=== PATIENT | male | born 1940 | race Two or more races ===

== ENCOUNTER 2021-12-29 10:00 | Inpatient (IN) | payer OTHER, MEDICAID ==
[~2021-12-29] VITALS: Ht 160 cm; Wt 77.4 kg
[2021-12-29 11:24] LABS: Basophils # (auto) 0 10 ^3/uL (0-0.2); Eosinophils # (auto) 0.2 10 ^3/uL (0-0.8); Hemoglobin 8.3 g/dL (13.5-17.5); Lymphocytes # (auto) 1.3 10 ^3/uL (0.4-5.4); Monocytes # (auto) 0.5 10 ^3/uL (0-1.3); Neutrophils # (auto) 2.7 10 ^3/uL (1.6-8.6)
[2021-12-29 11:25] LABS: Basophils % (auto) 0.4 % (0.0-2.0); Lymphocytes % (auto) 26.9 % (10.0-50.0); Mean Corpuscular Hemoglobin 33.4 pg (28.0-32.0); Mean Corpuscular Hgb Conc. 33.1 g/dL (32.0-36.0); Mean Corpuscular Volume 101.1 fL (80.0-100.0); Monocytes % (auto) 10.5 % (0.0-12.0); Neutrophils % (auto) 58.2 % (37.0-80.0); Nucleated Red Blood Cells % 0.1 %; Red Blood Cells 2.47 10^6/uL (4.5-5.90); Red Cell Distribution Width 14.5 % (11.8-14.3); White Blood Cell 4.7 10^3/uL (4.4-10.8)
[2021-12-29 11:37] LABS: Albumin 3.3 g/dL (3.4-5.0); Calcium 8.4 mg/dL (8.5-10.1)
[2021-12-29 11:42] LABS: BUN/Creatinine Ratio 23.3; Total Protein 6.7 g/dL (6.4-8.2)
[2021-12-29] MEDS ORDERED: DEXTROSE (50%) 50ML SYRG IV ONE (13:00)
[2021-12-29] MEDS ORDERED: SODIUM ZIRCONIUM CYCL 10 GM PAK PO ONE (13:00)
[2021-12-29] MEDS ORDERED: ALBUTEROL SULF 2.5 MG/0.5ML(0.5%) NEB SOLN NEB ONE (13:00)
[2021-12-29] MEDS ORDERED: CALCIUM GLUC 1,000mg/50ml-NS 50 ML IV ONE (13:00)
[2021-12-29] MEDS ORDERED: FUROSEMIDE 20 MG/2 ML VIAL IV ONE (13:00)
[2021-12-29] MEDS ORDERED: InsuLIN REG 1unit/0.01ml Soln (100units/ml) IV ONE (13:00)
[2021-12-29] MEDS ORDERED: SODIUM BICARBONATE 8.4% INJ 50ML SYRINGE IV ONE (13:00)
[2021-12-29 13:08] LABS: Urine Bacteria NONE SEEN /hpf (None Seen); Urine Blood Negative /uL (Negative); Urine Hyaline Cast FEW /lpf (0 - 2); Urine Specific Gravity 1.016 (1.001-1.035); Urine WBC 1 /hpf (0 - 3)
[2021-12-29] MEDS ORDERED: IOHEXOL 350 MG/ML 100ML IJ ONE (14:40)
[2021-12-29] MEDS ORDERED: SODIUM CHLORIDE 0.9% 1,000 ML IV ONE ×2 (14:45→16:30)
[2021-12-29] MEDS ORDERED: NOREPINEPHRINE 8 MG/250ML KIT 250 ML IV SCH (14:45)
[2021-12-29] MEDS ORDERED: ACETYLCYSTEINE ORAL for CIN 20%(200MG/ML) 4ML PO ONE (15:00)
[2021-12-29] MEDS ORDERED: NITROGLYCERIN 0.4 MG SL TAB SL PRN (16:15)
[2021-12-29] MEDS ORDERED: PANTOPRAZOLE 40 MG/10 ML VIAL INJ IV ONE (16:15)
[2021-12-29] MEDS ORDERED: MORPHINE SULFATE INJ 2 MG/ml SYRG IV PRN (16:15)
[2021-12-29 18:39] LABS: Basophils # (auto) 0 10 ^3/uL (0-0.2); Basophils % (auto) 0.2 % (0.0-2.0); Eosinophils # (auto) 0 10 ^3/uL (0-0.8); Eosinophils % (auto) 0.4 % (0.0-7.0); Hematocrit 27.1 % (41.0-53.0); Hemoglobin 8.9 g/dL (13.5-17.5); Lymphocytes # (auto) 0.8 10 ^3/uL (0.4-5.4); Lymphocytes % (auto) 8.7 % (10.0-50.0); Mean Corpuscular Hemoglobin 33.5 pg (28.0-32.0); Mean Corpuscular Hgb Conc. 32.8 g/dL (32.0-36.0); Mean Corpuscular Volume 102.1 fL (80.0-100.0); Monocytes # (auto) 0.6 10 ^3/uL (0-1.3); Neutrophils # (auto) 7.3 10 ^3/uL (1.6-8.6); Neutrophils % (auto) 83.7 % (37.0-80.0); Red Blood Cells 2.66 10^6/uL (4.5-5.90); Red Cell Distribution Width 14.8 % (11.8-14.3); White Blood Cell 8.7 10^3/uL (4.4-10.8)
[2021-12-29 19:00] LABS: BUN/Creatinine Ratio 20.6; Calcium 8.6 mg/dL (8.5-10.1); Potassium 4.7 mmol/L (3.5-5.1)
[2021-12-29 19:01] LABS: % Iron Saturation 28.6 % (20-55)
[2021-12-29 19:19] VITALS: BP 113/43
[2021-12-29] MEDS ORDERED: ATOR20TA50 PO (19:36)
[2021-12-29] MEDS ORDERED: TAMS0.4C36 PO (19:36)
[2021-12-29] MEDS ORDERED: LISI40TA11 PO (19:36)
[2021-12-29 19:38] LABS: Ferritin 362.5 ng/mL (10-322)
[2021-12-29 19:39] LABS: Folate (Folic Acid) 10.18 ng/mL (5.38-24)
[2021-12-29 19:45] LABS: Protein, Urine 20.8 mg/dL (0.0-11.9)
[2021-12-29 20:24] VITALS: BP 109/31
[2021-12-29] MEDS: PANTOPRAZOLE 40 MG/10 ML VIAL INJ IV SCH (21:55)
[2021-12-29 22:00] VITALS: BP 124/55
[2021-12-30] VITALS (9 sets, daily range): BP systolic 116–143; BP diastolic 46–59
[2021-12-30 02:02] LABS: Basophils # (auto) 0 10 ^3/uL (0-0.2); Basophils % (auto) 0.3 % (0.0-2.0); Eosinophils # (auto) 0.1 10 ^3/uL (0-0.8); Eosinophils % (auto) 1.3 % (0.0-7.0); Hematocrit 21.9 % (41.0-53.0); Hemoglobin 7.5 g/dL (13.5-17.5); Lymphocytes # (auto) 1.1 10 ^3/uL (0.4-5.4); Lymphocytes % (auto) 22.6 % (10.0-50.0); Mean Corpuscular Hemoglobin 34.2 pg (28.0-32.0); Mean Corpuscular Hgb Conc. 34.1 g/dL (32.0-36.0); Mean Corpuscular Volume 100.1 fL (80.0-100.0); Monocytes # (auto) 0.4 10 ^3/uL (0-1.3); Monocytes % (auto) 8.4 % (0.0-12.0); Neutrophils # (auto) 3.2 10 ^3/uL (1.6-8.6); Neutrophils % (auto) 67.4 % (37.0-80.0); Red Blood Cells 2.19 10^6/uL (4.5-5.90); Red Cell Distribution Width 14.7 % (11.8-14.3); White Blood Cell 4.7 10^3/uL (4.4-10.8)
[2021-12-30 02:25] LABS: BUN/Creatinine Ratio 22.6; Calcium 8.3 mg/dL (8.5-10.1); Potassium 5.2 mmol/L (3.5-5.1)
[2021-12-30 02:28] LABS: Bilirubin, Total 0.6 mg/dL (0.2-1.0)
[2021-12-30 09:53] LABS: Hematocrit 28.5 % (41.0-53.0); Hemoglobin 9.5 g/dL (13.5-17.5)
[2021-12-30] MEDS ORDERED: ASPI81CH74 PO (10:20)
[2021-12-30] MEDS: PANTOPRAZOLE 40 MG/10 ML VIAL INJ IV SCH ×2 (10:25→21:38)
[2021-12-30 14:42] LABS: Urine Bacteria FEW /hpf (None Seen); Urine Blood TRACE /uL (Negative); Urine Specific Gravity 1.023 (1.001-1.035); Urine WBC <1 /hpf (0 - 3)
[2021-12-30 14:57] LABS: Protein, Urine 33.5 mg/dL (0.0-11.9)
[2021-12-31 05:00] VITALS: BP 136/57
[2021-12-31 05:47] LABS: Basophils # (auto) 0 10 ^3/uL (0-0.2); Eosinophils # (auto) 0.3 10 ^3/uL (0-0.8); Hemoglobin 9.8 g/dL (13.5-17.5); Lymphocytes # (auto) 1.5 10 ^3/uL (0.4-5.4); Mean Corpuscular Hemoglobin 33.2 pg (28.0-32.0); Monocytes # (auto) 0.4 10 ^3/uL (0-1.3); White Blood Cell 5.2 10^3/uL (4.4-10.8)
[2021-12-31 05:50] LABS: Basophils % (auto) 0.6 % (0.0-2.0); Eosinophils % (auto) 5.9 % (0.0-7.0); Hematocrit 30.1 % (41.0-53.0); Lymphocytes % (auto) 28.1 % (10.0-50.0); Mean Corpuscular Hgb Conc. 32.6 g/dL (32.0-36.0); Mean Corpuscular Volume 102.1 fL (80.0-100.0); Monocytes % (auto) 7.6 % (0.0-12.0); Neutrophils % (auto) 57.8 % (37.0-80.0); Nucleated Red Blood Cells % 0.1 %; Red Blood Cells 2.95 10^6/uL (4.5-5.90); Red Cell Distribution Width 16.2 % (11.8-14.3)
[2021-12-31 06:22] LABS: % Iron Saturation 55.2 % (20-55)
[2021-12-31 08:15] LABS: Uric Acid 6.2 mg/dL (3.5-7.2)
[2021-12-31 09:00] VITALS: BP 118/56
[2021-12-31 09:20] LABS: BUN/Creatinine Ratio 15.7; Calcium 8.5 mg/dL (8.5-10.1); Phosphorus 3.4 mg/dL (2.5-4.90); Potassium 4.8 mmol/L (3.5-5.1)
[2021-12-31] MEDS: PANTOPRAZOLE 40 MG/10 ML VIAL INJ IV SCH ×2 (10:29→22:32)
[2021-12-31 13:00] VITALS: BP 131/53
[2021-12-31 17:00] VITALS: BP 144/63
[2021-12-31 22:00] VITALS: BP 131/53
[2022-01-01 05:00] VITALS: BP 127/57
[2022-01-01] MEDS ORDERED: diphenhdrAMINE HCL 50 MG/1 ML VL ONE (07:18)
[2022-01-01] MEDS ORDERED: NALOXONE HCL 0.4 MG/ML VIAL ONE (07:18)
[2022-01-01] MEDS ORDERED: FLUMAZENIL 0.1 MG/ML INJ 10ML MDV IV ONE (07:18)
[2022-01-01] MEDS ORDERED: fentaNYL CITRATE 100 MCG/2 ML VL ONE (07:19)
[2022-01-01] MEDS ORDERED: LIDOCAINE VISCOUS 2% 15ML UD ONE (07:21)
[2022-01-01] MEDS ORDERED: SIMETHICONE 40 MG/0.6 ML ORAL DROP ONE (07:33)
[2022-01-01 08:00] VITALS: BP 152/53
[2022-01-01] MEDS: MIDAZOLAM HCL 5 MG/ML-1ML VIAL ONE ×2 (08:23→08:26)
[2022-01-01] MEDS: PANTOPRAZOLE 40 MG/10 ML VIAL INJ IV SCH ×2 (10:05→21:44)
[2022-01-01 11:17] LABS: BUN/Creatinine Ratio 16.3; Calcium 8.3 mg/dL (8.5-10.1); Potassium 4.7 mmol/L (3.5-5.1)
[2022-01-01] MEDS: SUCRALFATE 1 GM TAB PO SCH ×3 (11:29→21:44)
[2022-01-01 12:06] LABS: INR 1.08 (0.9-1.15); Partial Thromboplastin Time 27.2 sec (24.6-33.4)
[2022-01-01 13:00] VITALS: BP 147/63
[2022-01-01 17:10] VITALS: BP 124/56
[2022-01-01 22:00] VITALS: BP 129/58
[2022-01-02 05:00] VITALS: BP 157/61
[2022-01-02] MEDS: SUCRALFATE 1 GM TAB PO SCH ×2 (06:12→11:30)
[2022-01-02 06:17] LABS: Basophils # (auto) 0 10 ^3/uL (0-0.2); Basophils % (auto) 0.3 % (0.0-2.0); Eosinophils # (auto) 0.3 10 ^3/uL (0-0.8); Hematocrit 29.1 % (41.0-53.0); Hemoglobin 9.9 g/dL (13.5-17.5); Lymphocytes # (auto) 1.7 10 ^3/uL (0.4-5.4); Lymphocytes % (auto) 30.8 % (10.0-50.0); Mean Corpuscular Hgb Conc. 33.9 g/dL (32.0-36.0); Mean Corpuscular Volume 97.3 fL (80.0-100.0); Monocytes # (auto) 0.4 10 ^3/uL (0-1.3); Monocytes % (auto) 7.7 % (0.0-12.0); Neutrophils % (auto) 55.2 % (37.0-80.0); Red Blood Cells 2.99 10^6/uL (4.5-5.90); Red Cell Distribution Width 14.9 % (11.8-14.3); White Blood Cell 5.5 10^3/uL (4.4-10.8)
[2022-01-02 06:27] LABS: BUN/Creatinine Ratio 15.3; Calcium 8.8 mg/dL (8.5-10.1); Potassium 4.6 mmol/L (3.5-5.1)
[2022-01-02 07:07] LABS: Immunoglobulin G, Serum 947 mg/dL (603-1613)
[2022-01-02 08:37] VITALS: BP 139/56
[2022-01-02] MEDS ORDERED: SUCR1TAB PO (09:19)
[2022-01-02] MEDS ORDERED: FERR-7 PO (09:19)
[2022-01-02] MEDS ORDERED: PANT40T PO (09:19)
[2022-01-02] MEDS: PANTOPRAZOLE 40 MG/10 ML VIAL INJ IV SCH (10:04)
[2022-01-02 10:55] VITALS: BP 108/41
== END 2022-01-02 13:15 | disposition home or self-care (01) | DRG 391 ==
LOC: ER 10:04 → TELE 16:09 → TELE-CENTR 19:07
PROVIDERS: ADMIT Registered Nurse; ATTEND Family Medicine
PROC: 30233N1 Transfusion of Nonautologous Red Blood Cells into Peripheral Vein, Percutaneous Approach (ICD-10-PCS; principal; 2021-12-30)
PROC: 0DB98ZX Excision of Duodenum, Via Natural or Artificial Opening Endoscopic, Diagnostic (ICD-10-PCS; 2022-01-01)
PROC: 0DB68ZX Excision of Stomach, Via Natural or Artificial Opening Endoscopic, Diagnostic (ICD-10-PCS; 2022-01-01)
PROC: 0DB48ZX Excision of Esophagogastric Junction, Via Natural or Artificial Opening Endoscopic, Diagnostic (ICD-10-PCS; 2022-01-01)
DX: K29.90 Gastroduodenitis, unspecified, without bleeding (principal); N17.0 Acute kidney failure with tubular necrosis; E46 Unspecified protein-calorie malnutrition; N18.4 Chronic kidney disease, stage 4 (severe); K80.20 Calculus of gallbladder without cholecystitis without obstruction; K44.9 Diaphragmatic hernia without obstruction or gangrene; I12.9 Hypertensive chronic kidney disease with stage 1 through stage 4 chronic kidney disease, or unspecified chronic kidney disease; D53.9 Nutritional anemia, unspecified; D63.8 Anemia in other chronic diseases classified elsewhere; D69.6 Thrombocytopenia, unspecified; E66.01 Morbid (severe) obesity due to excess calories; E78.00 Pure hypercholesterolemia, unspecified; E87.5 Hyperkalemia; G89.4 Chronic pain syndrome; K25.9 Gastric ulcer, unspecified as acute or chronic, without hemorrhage or perforation; K29.70 Gastritis, unspecified, without bleeding; K29.80 Duodenitis without bleeding; K40.90 Unilateral inguinal hernia, without obstruction or gangrene, not specified as recurrent; K57.30 Diverticulosis of large intestine without perforation or abscess without bleeding; M43.17 Spondylolisthesis, lumbosacral region; R13.10 Dysphagia, unspecified; Z20.822 Contact with and (suspected) exposure to COVID-19; Z68.23 Body mass index [BMI] 23.0-23.9, adult
CPT/HCPCS: 36415; 36600; 43239; 71046; 74175; 80048; 80053; 81001; 82270; 82306; 82570; 82607; 82728; 82746; 82784; 82805; 82962; 83540; 83550; 83735; 83880; 84100; 84132; 84156; 84166; 84300; 84550; 85014; 85018; 85025; 85045; 85610; 85730; 86038; 86334; 86850; 86900; 86901; 86920; 94640; 96365; 96375; C9113; G0378; J1815; J2250

== ENCOUNTER → 2022-06-01 | Day surgery (SDC) | payer OTHER, MEDICAID ==
[2022-05-30 12:25] LABS: Basophils # (auto) 0 10 ^3/uL (0-0.2); Basophils % (auto) 0.3 % (0.0-2.0); Eosinophils # (auto) 0.2 10 ^3/uL (0-0.8); Eosinophils % (auto) 2.8 % (0.0-7.0); Hematocrit 34.6 % (41.0-53.0); Hemoglobin 11.8 g/dL (13.5-17.5); Lymphocytes # (auto) 1.8 10 ^3/uL (0.4-5.4); Mean Corpuscular Hemoglobin 33.7 pg (28.0-32.0); Mean Corpuscular Volume 99.1 fL (80.0-100.0); Monocytes # (auto) 0.8 10 ^3/uL (0-1.3); Monocytes % (auto) 12.3 % (0.0-12.0); Neutrophils # (auto) 3.4 10 ^3/uL (1.6-8.6); Neutrophils % (auto) 54.6 % (37.0-80.0); Nucleated Red Blood Cells % 0.1 %; Red Blood Cells 3.49 10^6/uL (4.5-5.90); White Blood Cell 6.2 10^3/uL (4.4-10.8)
[2022-05-30 12:44] LABS: INR 1.03 (0.9-1.15); Partial Thromboplastin Time 26.2 sec (24.6-33.4)
[2022-05-30 12:45] LABS: Albumin 3.5 g/dL (3.4-5.0); BUN/Creatinine Ratio 14.8; Calcium 9.2 mg/dL (8.5-10.1)
[2022-05-30 12:56] LABS: Bilirubin, Total 0.9 mg/dL (0.2-1.0); Total Protein 7.4 g/dL (6.4-8.2)
[~2022-06-01] VITALS: Ht 165.1 cm; Wt 84.4 kg
[~2022-06-01] MED LIST: ATOR20TA50 PO; FERR-7 PO; MIDAZOLAM HCL 2MG/2ML 2ml VIAL (1mg/ml) ONE; PANT40T PO; TAMS0.4C36 PO; diphenhdrAMINE HCL 50 MG/1 ML VL ONE; fentaNYL CITRATE 100 MCG/2 ML VL ONE
[2022-06-01 14:45] VITALS: BP 171/69
== END | disposition home or self-care (01) ==
LOC: GI 11:27
PROVIDERS: ATTEND Internal Medicine Gastroenterology
DX: K57.30 Diverticulosis of large intestine without perforation or abscess without bleeding (principal); D64.9 Anemia, unspecified; K64.0 First degree hemorrhoids; E78.5 Hyperlipidemia, unspecified; Z98.890 Other specified postprocedural states; Z79.899 Other long term (current) drug therapy; Z20.822 Contact with and (suspected) exposure to COVID-19
CPT/HCPCS: 36415; 45378; 80053; 85025; 85610; 85730; J1200; J2250; J3010; J7030; U0003

== ENCOUNTER 2024-07-09 18:55 | Inpatient (IN) | payer OTHER, MEDICAID ==
[~2024-07-09] VITALS: Ht 167.6 cm; Wt 81.6 kg
[~2024-07-09 18:55] MED LIST changes: -MIDAZOLAM HCL 2MG/2ML 2ml VIAL (1mg/ml) ONE; -TAMS0.4C36 PO; +TAMS0.4C39 PO; -diphenhdrAMINE HCL 50 MG/1 ML VL ONE; -fentaNYL CITRATE 100 MCG/2 ML VL ONE
--- NOTE | 2024-07-09 19:40 | ED.PDOC ---
HPI (NEURO) HPI Comments HPI: Poor Historian. History obtained from the patient and the [id number]. 84-year-old male presents to emergency department for evaluation of some tremors and disorientation and dizziness that started today at approximately 5:00 p.m. patient ambulating independently. Denies vertigo like symptoms. Past Medical History: CKF, CVA, dementia, BPH Past Surgical History: Denies any Vitals: temperature of 97.2F, respiratory rate of 20, SpO2 98%, pulse rate of 70, and a blood pressure of 136/70 REVIEW OF SYSTEMS: CONSTITUTIONAL: Denies acute: fever, diaphoresis, chills, HEAD: Denies acute: headache, photophobia Eyes: Denies acute: Double vision, vision loss, eye pain, eye discharge. EARS: Denies acute: tinnitus, hearing loss, ear discharge, ear pain, THROAT: Denies acute: sore throat, swelling, difficulty swallowing , pain with swallowing, change in voice. NECK: Denies acute: neck pain, neck swelling, stiff neck. HEART: Denies acute : chest pain, palpitations, LUNGS: Denies acute: SOB, wheezing, cough, hemoptysis ABDOMEN: Denies acute: abdominal pain, Nausea, Vomiting, diarrhea, melena , hematemesis, hematochezia SKIN: Denies acute: rash, redness, lesions, itchiness. EXTREMITIES: Denies acute: calf pain, numbness, tingling, weakness, denies pain in extremity. Denies acute: Low back pain. Neuro: Denies acute: focal neurological deficit, motor or sensory focal neurological deficit, seizure like activity, confusion, loss of bowel or bladder function, cauda equina like symptoms. : Denies acute: dysuria, hematuria, flank pain, increase in urinary frequency. PSYCH: Denies acute: hallucination, suicidal ideation, homicidal ideation. PHYSICAL EXAM: General: no acute distress, awake and alert. Head: normocephalic, atraumatic. Neck: supple, trachea is midline, no swelling. Throat: Normal phonation. Eyes:, no erythema, no purulent discharge, no proptosis, no icterus. Heart: regular rate, regular rhythm, no significant murmur appreciated. Lungs: no apparent respiratory distress, Able to speak in full sentences. No wheezing, no rhonchi, no crackles. No stridors Clear to auscultation bilaterally. Abdomen: non tender to palpation, non distended, soft, no guarding, no rebound, + bowel sounds. Neuro: Awake, Alert, oriented to name, self, situation, follows commands GCS=15. Speech is normal. Skin: no petechia, no purpura, no cyanosis, non-pale, not jaundice. Lower extremities: --no - Pitting edema no deformity, no focal swelling, no calf TTP. Makes eye contact. moves all four extremities. Face: no apparent facial droop. Ambulating in the ED independently. PERRLA, EOM-I CN 2-12 are grossly intact, No nystagmus. No nuchal rigidity, Kernig's sign, Brudzinski's sign, no meningeal signs. ED COURSE: Chief Complaint: Dizziness Time Seen by MD: 19:09 Reviewed Notes: Nurses Notes, Allergies Information Source: Patient, Relative Past Medical History PAST MEDICAL HISTORY: Unknown Surgical History: Unknown Family History Family History: Unknown Social History Smoker: Non-Smoker Alcohol: Denies ETOH Use Drugs: Denies Drug Use Lives In: Home Was a procedure done? Was a procedure done?: No Differential Diagnosis (SZ) Seizure: N/A CVA: CVA, Delirium Tremens, DKA, Drug Overdose, Electrolyte Imbalance, Encephalopathy, Hypoglycemia, Hypoxemia, Mass Lesion, Respiratory Failure, SAH, TIA Headache: Other (DDX include Sinusitis, migraine, meningitis, hypertension, intracranial mass/bleed, stroke, radiculopathy, vertebrobasillary insufficiency, cephalgia, pseudotumor cerebri, cerebellar ischemia/infarct, carotid stenosis, lacunar infarct, vertebral/carotid artery dissection, hydrocephalus, temporal arteritis, dura venous sinus thrombosis.) X-Ray, Labs, Meds, VS Vital Signs Date Time Temp Pulse Resp B/P (MAP) Pulse Ox O2 Delivery O2 Flow Rate FiO2 07/09/24 19:37 67 166/60 (95) 98 07/09/24 19:27 97.2 70 20 136/70 (92) 98 Lab Test 07/09/24 21:10 07/09/24 20:06 07/09/24 19:41 Range/Units Troponin I High Sensitivity 6 6 </=54 ng/L Urine Color Light-yellow Yellow Urine Clarity Clear Clear Urine pH 5.5 5.0-9.0 Urine Specific [place] 1.014 1.001-1.035 Urine Protein Negative Negative Urine Ketones Negative Negative Urine Blood 2+ H Negative /uL Urine Nitrite Negative Negative Urine Bilirubin Negative Negative Urine Urobilinogen Normal Negative mg/dL Urine Leukocyte Esterase Negative Negative /uL Urine RBC 15 0 - 3 /hpf Urine Microscopic WBC < 1 0-3 /HPF Urine Squamous Epithelial Cells Few <5 /hpf Urine Bacteria None seen None Seen /hpf Urine Glucose Normal Normal mg/dL White Blood Count 6.3 4.4-10.8 10^3/uL Red Blood Count 3.66 L 4.5-5.90 10^6/uL Hemoglobin 11.8 L 13.5-17.5 g/dL Hematocrit 34.4 L 41.0-53.0 % Mean Corpuscular Volume 93.9 80.0-100.0 fL Mean Corpuscular Hemoglobin 32.2 H 28.0-32.0 pg Mean Corpuscular Hemoglobin Concent 34.3 32.0-36.0 g/dL Red Cell Distribution Width 15.2 H 11.8-14.3 % Platelet Count 201 140-450 10^3/uL Mean Platelet Volume 7.8 6.9-10.8 fL Neutrophils (%) (Auto) 53.2 37.0-80.0 % Lymphocytes (%) (Auto) 29.1 10.0-50.0 % Monocytes (%) (Auto) 9.2 0.0-12.0 % Eosinophils (%) (Auto) 7.7 H 0.0-7.0 % Basophils (%) (Auto) 0.8 0.0-2.0 % Neutrophils # (Auto) 3.3 1.6-8.6 10 ^3/uL Lymphocytes # (Auto) 1.8 0.4-5.4 10 ^3/uL Monocytes # (Auto) 0.6 0-1.3 10 ^3/uL Eosinophils # (Auto) 0.5 0-0.8 10 ^3/uL Basophils # (Auto) 0.1 0-0.2 10 ^3/uL Nucleated Red Blood Cells 0.0 % Prothrombin Time 11.0 9.3-11.8 sec Prothrombin Time INR 1.04 0.9-1.15 Activated Partial Thromboplast Time 27.1 24.5-34.5 SEC Sodium Level 138 136-145 mmol/L Potassium Level 4.7 3.5-5.1 mmol/L Chloride Level 104 98-107 mmol/L Carbon Dioxide Level 25 20-31 mmol/L Anion Gap 9 5-15 Blood Urea Nitrogen 22 9-23 mg/dL Creatinine 1.38 H 0.700-1.30 mg/dL Glomerular Filtration Rate Calc 50 >90 mL/min BUN/Creatinine Ratio 15.9 10.0-20.0 Serum Glucose 108 H 74-106 mg/dL Lactic Acid Level 1.1 0.4-2.0 mmol/L Calcium Level 10.1 8.7-10.4 mg/dL Magnesium Level 2.4 1.6-2.6 mg/dL Total Bilirubin 1.0 0.2-1.0 mg/dL Aspartate Amino Transferase (AST) 26 13-40 U/L Alanine Aminotransferase (ALT) 18 7-40 U/L Alkaline Phosphatase 128 H 46-116 U/L B-Type Natriuretic Peptide 101.92 0-100 pg/mL Total Protein 7.5 5.7-8.2 g/dL Albumin 4.7 3.2-4.8 g/dL [place] [id number] Ph: [phone] DIAGNOSTIC IMAGING Diagnostic Imaging Report : [id number] Signed PATIENT: VIPIN MCKINNEYCCT: [id number] UNIT: [id number] : 1940 LOC: ER ROOM / BED: / AGE / SEX: 84 / M ADM STATUS: REG ER SERVICE 30 ORDERING PHYSICIAN: CRISTAL HILL DO PROCEDURE(s): HWOCT - HEAD WITHOUT CONTRAST REASON: dizzy ORDER NUMBER(s): [id number], ACCESSION NUMBER(s): [id number] Exam: CT HEAD WITHOUT CONTRAST History: dizzy Technique: [address] images through the posterior fossa and the supratentorial compartment were acquired without contrast and imaged using soft tissue and bone algorithms. RADIATION DOSE: DLP 1142.1 mGy.cm; CTDI vol 57.96 mGy. Comparison: None Findings: There is no evidence of an intracranial hemorrhage, acute large vessel infarct, mass effect, or midline shift. Chronic small vessel ischemic disease. There is mild cerebral atrophy. Mild calcification of the carotid siphons. The calvarium, orbits, paranasal sinuses, sella, middle ears, and mastoids are unremarkable. The superficial soft tissues are within normal limits. Impression: 1. No acute intracranial abnormality. ATED BY: STEPHANIE NORTON DO DICTATED DATE/TIME: 07/09/242054 SIGNED BY: STEPHANIE NORTON DO SIGNED DATE/TIME: 07/09/242054 CC: [place] [id number] Ph: [phone] DIAGNOSTIC IMAGING Diagnostic Imaging Report : [id number] Signed PATIENT: VIPIN MCKINNEYCCT: [id number] UNIT: [id number] : 1940 LOC: ER ROOM / BED: / AGE / SEX: 84 / M ADM STATUS: REG ER SERVICE 30 ORDERING PHYSICIAN: CRISTAL HILL DO PROCEDURE(s): CXRP - CHEST PORTABLE REASON: dizzy ORDER NUMBER(s): [id number], ACCESSION NUMBER(s): [id number] CHEST RADIOGRAPH Indication: dizzy Technique: Single frontal view of the chest was obtained Comparison: None FINDINGS: Lines and Tubes: None Lungs: Increased bibasilar interstitial markings may represent atelectasis or infiltrate. Pleura: No effusion. No pneumothorax. Cardiomediastinal contours: Unremarkable Bones: No acute osseous abnormality. IMPRESSION: 1. Bibasilar interstitial prominence may represent atelectasis or infiltrate. HS:Y ATED BY: AMA RASHID Jr., DO DICTATED DATE/TIME: 07/09/242050 SIGNED BY: AMA RASHID Jr., DO SIGNED DATE/TIME: 07/09/242050 CC: Time of 1ST Reevaluation: 03:47 Reevaluation 1ST: Unchanged Patient Education/Counseling: Treatment Family Education/Counseling: Diagnosis, Treatment Comments Patient presented with the above HPI.---disorientation/headache---workup was initiated. patient was found with the above mentioned diagnosis. the following medications were ordered: please refer to order lists of meds and tests obtained by myself Dr. Hill. Patient ED course and VS have been stabilized. Patient has been reassessed in e ED and remained in a stable condition. Pertinent incidental findings were discussed with the patient and/or family. Patient/family voices understanding and is agreeable with plan. Patient has been observed in the ED adequate length of time to insure improvement/stability. Escalation of care considered: Consideration of escalation to observation or admission Patient was ADMITTED to the medicine team for further evaluation and treatment of their presentation. Patient will be admitted to rule out CTA versus other etiologies Patient arrived to the ED already outside the window for any potential stroke treatment. He has no focal neurological deficit on exam. All the reports of any imaging studies that were ordered by myself were reviewed by myself. Given patient's suspected infiltrates on chest x-ray, Rocephin was initiated. Departure 1 Departure Time of Disposition: 20:51 Impression: Primary Impression: Dizziness Additional Impression: Disorientation Disposition: ADMITTED INPATIENT Admit to: Tele Condition: Guarded Discharged With: Self Critical Care Note Critical Care Time?: No I personally scribed for CRISTAL HILL DO ([email or web address]) on 07/09/24 at 20:04. Electronically submitted by Bhavesh Ventura ([email or web address]). CRISTAL HILL DO Jul 09, 2024 19:40
[2024-07-09 20:08] LABS: Urine Bacteria None Seen /hpf (None Seen)
[2024-07-09 20:23] LABS: Basophils # (auto) 0.1 10 ^3/uL (0-0.2); Basophils % (auto) 0.8 % (0.0-2.0); Eosinophils # (auto) 0.5 10 ^3/uL (0-0.8); Eosinophils % (auto) 7.7 % (0.0-7.0); Hematocrit 34.4 % (41.0-53.0); Hemoglobin 11.8 g/dL (13.5-17.5); Lymphocytes # (auto) 1.8 10 ^3/uL (0.4-5.4); Lymphocytes % (auto) 29.1 % (10.0-50.0); Mean Corpuscular Hemoglobin 32.2 pg (28.0-32.0); Mean Corpuscular Hgb Conc. 34.3 g/dL (32.0-36.0); Mean Corpuscular Volume 93.9 fL (80.0-100.0); Monocytes # (auto) 0.6 10 ^3/uL (0-1.3); Monocytes % (auto) 9.2 % (0.0-12.0); Neutrophils # (auto) 3.3 10 ^3/uL (1.6-8.6); Neutrophils % (auto) 53.2 % (37.0-80.0); Platelet Count (auto) 201 10^3/uL (140-450); Red Blood Cells 3.66 10^6/uL (4.5-5.90); Red Cell Distribution Width 15.2 % (11.8-14.3); White Blood Cell 6.3 10^3/uL (4.4-10.8)
[2024-07-09 20:29] LABS: Urine Blood 2+ /uL (Negative); Urine Clarity Clear (Clear); Urine Color Light-Yellow (Yellow); Urine Protein, UAD Negative (Negative); Urine Specific Gravity 1.014 (1.001-1.035); Urine Squamous Epithelial Cell FEW /hpf (<5); Urine Urobilinogen Normal (Negative); Urine WBC < 1 /HPF (0-3); Urine pH 5.5 (5.0-9.0)
[2024-07-09 20:37] LABS: Alanine Aminotransferase 18 U/L (7-40); Albumin 4.7 g/dL (3.2-4.8); Anion Gap 9 (5-15); Aspartate Aminotransferase 26 U/L (13-40); BUN/Creatinine Ratio 15.9 (10.0-20.0); Blood Urea Nitrogen 22 mg/dL (9-23); Calcium 10.1 mg/dL (8.7-10.4); Carbon Dioxide 25 mmol/L (20-31); Chloride 104 mmol/L (98-107); Magnesium 2.4 mg/dL (1.6-2.6); Potassium 4.7 mmol/L (3.5-5.1); Sodium 138 mmol/L (136-145)
[2024-07-09 20:38] LABS: Alkaline Phosphatase 128 U/L (46-116); Glucose 108 mg/dL (74-106); Total Protein 7.5 g/dL (5.7-8.2)
--- NOTE | 2024-07-09 20:54 | DVH ---
CHEST RADIOGRAPH Indication: dizzy Technique: Single frontal view of the chest was obtained Comparison: None FINDINGS: Lines and Tubes: None Lungs: Increased bibasilar interstitial markings may represent atelectasis or infiltrate. Pleura: No effusion. No pneumothorax. Cardiomediastinal contours: Unremarkable Bones: No acute osseous abnormality. IMPRESSION: 1. Bibasilar interstitial prominence may represent atelectasis or infiltrate. HS:Y
--- NOTE | 2024-07-09 20:57 | DVH ---
Exam: CT HEAD WITHOUT CONTRAST History: dizzy Technique: [address] images through the posterior fossa and the supratentorial compart ment were acquired without contrast and imaged using soft tissue and bone algorithms. RADIATION DOSE: DLP 1142.1 mGy.cm; CTDI vol 57.96 mGy. Comparison: None Findings: There is no evidence of an intracranial hemorrhage, acute large vessel infarct, mass effect, or midli ne shift. Chronic small vessel ischemic disease. There is mild cerebral atrophy. Mild calcification of the carotid siphons. The calvarium, orbits, paranasal sinuses, sella, middle ears, and mastoids are unremarkable. The superficial soft tissues are within normal limits. Impression: 1. No acute intracranial abnormality.
[2024-07-09 21:34] LABS: INR 1.04 (0.9-1.15); Partial Thromboplastin Time 27.1 SEC (24.5-34.5)
[2024-07-10] VITALS (7 sets, daily range): BP systolic 120–167; BP diastolic 52–69; PULSE 60–67; RESP 16–18; TEMP 97.6–98.6; O2SAT 97–99
[2024-07-10] MEDS: ASPirin 81 mg TAB PO ONE (01:28)
[2024-07-10] MEDS: CLOPIDOGREL BISULFATE 75 MG TAB PO ONE (01:29)
[2024-07-10] MEDS: ATORVASTATIN 20 MG TAB PO SCH (01:29)
--- NOTE | 2024-07-10 01:57 | DVH ---
INDICATION: HEMATURIA, KIDNEYS AND BLADDER TECHNIQUE: Multiple real-time sonographic images of the kidneys and bladder were obtained. COMPARISON: None FINDINGS: RIGHT kidney measures 8 cm in length. NO hydronephrosis. LEFT kidney measures 8.1 cm in length. NO hydronephrosis. THE URINARY BLADDER IS CONTRACTED AND CAN NOT BE EVALUATED COMPLETELY. INCIDENTAL FINDINGS OF CHOLELITHIASIS. IMPRESSION: 1. NO HYDRONEPHROSIS.
--- NOTE | 2024-07-10 04:55 | DVHHPRES ---
History of Present Illness Resident Creating Document: BALJINDER SINGH RESIDENT Reason for Visit: rule out stroke History of Present Illness 84-year-old male found by his daughter at approximately 5:00 PM with diaphoresis and weakness. The patient was noted to have dysarthria, but the daughter denies noticing any facial asymmetry. No reported vertigo-like symptoms. The patient has a history of ischemic stroke 7 years ago. The patient describes a sensation of head fullness. Past Medical History: Ischemic stroke (7 years ago), Dementia, Benign prostatic hyperplasia Medications: Atorvastatin, Tamsulosin, Donepezil On physical examination, the patient has decreased strength in the left upper extremity with preserved director of brand marketing strength. No evidence of facial droop or overt aphasia. His cognitive function is consistent with age-related decline but without acute worsening. Review of Systems Constitutional: Yes: Weakness; No: Fever, Chills, Sweats, Malaise, Other Eyes: No: Pain, Vision change, Conjunctivae inflammation, Eyelid inflammation, Other, Redness ENT: No: Ear pain, Ear discharge, Nose pain, Nose discharge, Nose congestion, Mouth pain, Mouth swelling, Throat pain, Throat swelling, Other Respiratory: No: Cough, Dry, Shortness of breath, SOB with excertion, Wheezing, Hemoptysis, Pleuritic Pain, Sputum, Wheezing, Other Cardiovascular: No: Chest Pain, Palpitations, Orthopnea, Paroxysmal Noc. Dyspnea, Edema, Lt Headedness, Other Gastrointestinal: No: Nausea, Vomiting, Abdominal Pain, Diarrhea, Constipation, Melena, Hematochezia, Other Genitourinary: No Dysuria, No Frequency, No Incontinence, No Hematuria, No Retention, No Other Musculoskeletal: No: other, neck pain, shoulder pain, arm pain, back pain, hand pain, leg pain, foot pain Skin: No: Rash, Lesions, Jaundice, Bruising, Other Neurological: Weakness, Incoordination; No: Numbness, Change in speech, Confusion, Seizures, Other Allergies: Coded Allergies: NO KNOWN ALLERGIES (Unverified , 12/29/21) Medications Current Medications Medications Dose Ordered Sig/Renee Route Start Time Stop Time Status Last Admin Dose Admin Atorvastatin Calcium 80 mg DAILY PO 07/10/24 00:45 07/10/24 01:29 80 MG Enoxaparin Sodium 40 mg DAILY SC 07/10/24 10:00 Ceftriaxone Sodium 50 ml @ 100 mls/hr DAILY@09 IV 07/10/24 09:00 Exam Vital Signs Vital Signs Date Time Temp Pulse Resp B/P (MAP) Pulse Ox O2 Delivery O2 Flow Rate FiO2 07/10/24 01:15 Room Air* 0 21 07/09/24 19:37 67 166/60 (95) 98 07/09/24 19:27 97.2 20 Exam General: No acute distress. Neurological: Decreased strength in the left upper extremity, preserved director of brand marketing strength. No facial droop or new cognitive decline. Normal speech on evaluation. Cardiovascular: Regular rate and rhythm. No murmurs. Pulmonary: Clear to auscultation bilaterally. Abdomen: Soft, non-tender. No hepatosplenomegaly. Extremities: No edema. Labs/Xrays Labs Test 07/09/24 21:10 07/09/24 20:06 07/09/24 19:41 Range/Units Troponin I High Sensitivity 6 </=54 ng/L Urine Color Light-yellow Yellow Urine Clarity Clear Clear Urine pH 5.5 5.0-9.0 Urine Specific [place] 1.014 1.001-1.035 Urine Protein Negative Negative Urine Ketones Negative Negative Urine Blood 2+ H Negative /uL Urine Nitrite Negative Negative Urine Bilirubin Negative Negative Urine Urobilinogen Normal Negative mg/dL Urine Leukocyte Esterase Negative Negative /uL Urine RBC 15 0 - 3 /hpf Urine Microscopic WBC < 1 0-3 /HPF Urine Squamous Epithelial Cells Few <5 /hpf Urine Bacteria None seen None Seen /hpf Urine Glucose Normal Normal mg/dL White Blood Count 6.3 4.4-10.8 10^3/uL Red Blood Count 3.66 L 4.5-5.90 10^6/uL Hemoglobin 11.8 L 13.5-17.5 g/dL Hematocrit 34.4 L 41.0-53.0 % Mean Corpuscular Volume 93.9 80.0-100.0 fL Mean Corpuscular Hemoglobin 32.2 H 28.0-32.0 pg Mean Corpuscular Hemoglobin Concent 34.3 32.0-36.0 g/dL Red Cell Distribution Width 15.2 H 11.8-14.3 % Platelet Count 201 140-450 10^3/uL Mean Platelet Volume 7.8 6.9-10.8 fL Neutrophils (%) (Auto) 53.2 37.0-80.0 % Lymphocytes (%) (Auto) 29.1 10.0-50.0 % Monocytes (%) (Auto) 9.2 0.0-12.0 % Eosinophils (%) (Auto) 7.7 H 0.0-7.0 % Basophils (%) (Auto) 0.8 0.0-2.0 % Neutrophils # (Auto) 3.3 1.6-8.6 10 ^3/uL Lymphocytes # (Auto) 1.8 0.4-5.4 10 ^3/uL Monocytes # (Auto) 0.6 0-1.3 10 ^3/uL Eosinophils # (Auto) 0.5 0-0.8 10 ^3/uL Basophils # (Auto) 0.1 0-0.2 10 ^3/uL Nucleated Red Blood Cells 0.0 % Prothrombin Time 11.0 9.3-11.8 sec Prothrombin Time INR 1.04 0.9-1.15 Activated Partial Thromboplast Time 27.1 24.5-34.5 SEC Sodium Level 138 136-145 mmol/L Potassium Level 4.7 3.5-5.1 mmol/L Chloride Level 104 98-107 mmol/L Carbon Dioxide Level 25 20-31 mmol/L Anion Gap 9 5-15 Blood Urea Nitrogen 22 9-23 mg/dL Creatinine 1.38 H 0.700-1.30 mg/dL Glomerular Filtration Rate Calc 50 >90 mL/min BUN/Creatinine Ratio 15.9 10.0-20.0 Serum Glucose 108 H 74-106 mg/dL Lactic Acid Level 1.1 0.4-2.0 mmol/L Calcium Level 10.1 8.7-10.4 mg/dL Magnesium Level 2.4 1.6-2.6 mg/dL Total Bilirubin 1.0 0.2-1.0 mg/dL Aspartate Amino Transferase (AST) 26 13-40 U/L Alanine Aminotransferase (ALT) 18 7-40 U/L Alkaline Phosphatase 128 H 46-116 U/L B-Type Natriuretic Peptide 101.92 0-100 pg/mL Total Protein 7.5 5.7-8.2 g/dL Albumin 4.7 3.2-4.8 g/dL Assessment/Plan Assessment/Plan Imaging & Labs: Head CT: No acute findings. Chest X-ray: Possible bibasilar atelectasis, no cardiomegaly. Urinalysis: 2+ blood, no other significant abnormalities. CMP: creat 1,3 Assessment & Plan: 84-year-old male with a history of prior ischemic stroke, presenting with acute left upper extremity weakness and dysarthria, now improved. Given the focal neurological deficit, concern for an acute ischemic stroke remains high despite a negative initial head CT. #Stroke rule out NIHSS 6 #Hypertension #DAMIEN on possible CKD #Cholelithiasis #Hematuria #UTI? Admit Neurology evaluation Brain MRI to rule out stroke Carotid doppler Start aspirin and clopidogrel loading dose Start statin Hold on BPs: permissive hypertension Ceftriaxone IV per ED Case discussed with Dr Rea Plan discussed with: Patient, Other My Orders Orders - BALJINDER SINGH RESIDENT Procedure Category Date Status Time Admit ADMIT 07/10/24 Transmitted 00:37 Atorvastatin (Lipitor) PHA 07/10/24 In Process 00:45 Renal Specific DIET 07/10/24 Transmitted Diet(Renal) Dinner Npo (Nothing By DIET 07/10/24 Transmitted Mouth) Diet Breakfast Brain Head Wo Contrast MRI 07/10/24 Logged 00:48 Kidney US 07/10/24 Resulted 00:49 Enoxaparin Sodium PHA 07/10/24 In Process (Lovenox) 10:00 Complete Blood Count LAB 07/10/24 Logged 04:04 Comprehensive LAB 07/10/24 Logged Metabolic Panel 04:04 Date of Service: Jul 10, 2024 Billing Provider: ZANE REA MD Common Visit Codes: 14359-[id number] INP/OBS CARE (HIGH) Secondary Visit Codes: 71840-[id number] CARE PLAN 30 MINUTES BALJINDER SINGH Jul 10, 2024 04:55 ZANE REA MD Jul 10, 2024 09:33
--- NOTE | 2024-07-10 09:08 | DVH ---
PROCEDURE: MRI BRAIN HEAD WO CONTRAST INDICATION: RULE OUT STROKE EXAM DATE: 07/10/2024 08:28 AM COMPARISON: None TECHNIQUE: MRI of the brain without intravenous contrast. FINDINGS: Diffusion weighted images of the brain demonstrate no evidence of acute infarction. There is no evidence of acute intracranial hemorrhage, extra-axial collection, mass effect, midline s hift, herniation or hydrocephalus. The ventricles, sulci and cisterns appear age appropriate. There is nonspecific periventricular and subcortical T2/FLAIR hyperintense white matter changes. Diff erential includes: Demyelinating disease, chronic microangiopathic change, residua of migraine headac hes or other postinflammatory residua. There are no signal abnormalities on the susceptibility weighted sequences. The major vascular flow voids are present. The visualized paranasal sinuses and mastoid air cells are clear. The surrounding soft tissues and o sseous structures are unremarkable. IMPRESSION: No evidence of acute infarction, intracranial hemorrhage, mass effect or hydrocephalus. There is nonspecific periventricular and subcortical T2/FLAIR hyperintense white matter changes. Diff erential includes: Demyelinating disease, chronic microangiopathic change, residua of migraine headac hes or other postinflammatory residua.
--- NOTE | 2024-07-10 09:10 | DVH ---
Carotid Duplex Date: 07/10/2024 08:17 AM Clinical History: work up stroke, altered Comparison: None Technique: Duplex Doppler evaluation of the extracranial carotid and vertebral arteries including color Doppler and spectral/pulsed waveform analysis was performed. Findings: RIGHT SIDE: The peak systolic velocities are 88 cm/s in the distal CCA and 95 cm/s in the proximal ICA.The ICA/CC A ratio is 1.1. The external carotid artery is patent with peak systolic velocity of 126 cm/s proximally. There is appropriate antegrade flow in the right vertebral artery. LEFT SIDE: The peak systolic velocities are 83 cm/s in the distal CCA and 124 cm/s in the proximal ICA.. The IC A/CCA ratio is less than 2. The external carotid artery is patent with peak systolic velocity of 120 cm/s proximally. There is appropriate antegrade flow in the left vertebral artery. IMPRESSION: No hemodynamically significant stenosis noted in the right carotid system. No hemodynamically significant stenosis noted in the left carotid system. Reference: Radiology 2003; 229:[id number]
[2024-07-10 09:57] LABS: Basophils # (auto) 0 10 ^3/uL (0-0.2); Basophils % (auto) 0.4 % (0.0-2.0); Eosinophils # (auto) 0.4 10 ^3/uL (0-0.8); Eosinophils % (auto) 6.5 % (0.0-7.0); Hematocrit 35.1 % (41.0-53.0); Hemoglobin 11.8 g/dL (13.5-17.5); Lymphocytes # (auto) 1.8 10 ^3/uL (0.4-5.4); Lymphocytes % (auto) 30.5 % (10.0-50.0); Mean Corpuscular Hemoglobin 31.6 pg (28.0-32.0); Mean Corpuscular Hgb Conc. 33.5 g/dL (32.0-36.0); Mean Corpuscular Volume 94.2 fL (80.0-100.0); Monocytes # (auto) 0.6 10 ^3/uL (0-1.3); Monocytes % (auto) 10.4 % (0.0-12.0); Neutrophils % (auto) 52.2 % (37.0-80.0); Nucleated Red Blood Cells % 0.2 %; Platelet Count (auto) 190 10^3/uL (140-450); Red Blood Cells 3.73 10^6/uL (4.5-5.90); Red Cell Distribution Width 15.2 % (11.8-14.3); White Blood Cell 5.8 10^3/uL (4.4-10.8)
[2024-07-10 10:05] LABS: Alanine Aminotransferase 17 U/L (7-40); Anion Gap 11 (5-15); Aspartate Aminotransferase 25 U/L (13-40); BUN/Creatinine Ratio 14.5 (10.0-20.0); Blood Urea Nitrogen 19 mg/dL (9-23); Calcium 9.6 mg/dL (8.7-10.4); Carbon Dioxide 23 mmol/L (20-31); Chloride 106 mmol/L (98-107); Glucose 98 mg/dL (74-106); Potassium 4.1 mmol/L (3.5-5.1); Sodium 140 mmol/L (136-145)
[2024-07-10 10:06] LABS: Albumin 4.2 g/dL (3.2-4.8)
[2024-07-10] MEDS: cefTRIAXone 1GM/50ML D5W 50 ML IV SCH (10:17)
[2024-07-10] MEDS: ENOXAPARIN SOD 40 MG/0.4 ML SYRINGE SC SCH (10:18)
[2024-07-10 10:33] LABS: Alkaline Phosphatase 117 U/L (46-116); Bilirubin, Total 1.2 mg/dL (0.2-1.0)
--- NOTE | 2024-07-10 12:16 | DVHPN2 ---
Reviewed: Care Plan, H&P, Labs, Medications, Previous Orders, Radiology Changes from previous H/P or p: No Changes Eyes: No Pain, No Vision change, No Conjunctivae inflammation, No Eyelid inflammation, No Other, No Redness ENT: No Ear pain, No Ear discharge, No Nose pain, No Nose discharge, No Nose congestion, No Mouth pain, No Mouth swelling, No Throat pain, No Throat swelling, No Other Cardiovascular: No Chest Pain, No Palpitations, No Orthopnea, No Paroxysmal Noc. Dyspnea, No Edema, No Lt Headedness, No Other Respiratory: No Cough, No Dry, No Shortness of breath, No SOB with excertion, No Wheezing, No Hemoptysis, No Pleuritic Pain, No Sputum, No Other Gastrointestinal: No Nausea, No Vomiting, No Abdominal Pain, No Diarrhea, No Constipation, No Melena, No Hematochezia, No Other Genitourinary: No Dysuria, No Frequency, No Incontinence, No Hematuria, No Retention, No Other Musculoskeletal: No other, No neck pain, No shoulder pain, No arm pain, No back pain, No hand pain, No leg pain, No foot pain Skin: No Rash, No Lesions, No Jaundice, No Bruising, No Other Objective Vitals Vital Signs Date Time Temp Pulse Resp B/P (MAP) Pulse Ox O2 Delivery O2 Flow Rate FiO2 07/10/24 09:00 97.6 60 18 148/61 (90) 97 97.6 07/10/24 08:00 Room Air* 0 21 Intake/Output Intake and Output 07/10/24 07:00 Intake Total 0 ml Balance 0 ml Intake Oral 0 ml # Voids 1 Medications Current Medications Medications Dose Ordered Sig/Renee Route Start Time Stop Time Status Last Admin Dose Admin Atorvastatin Calcium 80 mg DAILY PO 07/10/24 00:45 07/10/24 01:29 80 MG Enoxaparin Sodium 40 mg DAILY SC 07/10/24 10:00 07/10/24 10:18 40 MG Ceftriaxone Sodium 50 ml @ 100 mls/hr DAILY@09 IV 07/10/24 09:00 07/10/24 10:17 100 MLS/HR Laboratory Results Laboratory Tests 07/10/24 09:14 Chemistry Test 07/09/24 19:41 07/10/24 09:14 Albumin 4.7 g/dL (3.2-4.8) 4.2 g/dL (3.2-4.8) Calcium Level 10.1 mg/dL (8.7-10.4) 9.6 mg/dL (8.7-10.4) Magnesium Level 2.4 mg/dL (1.6-2.6) Total Protein 7.5 g/dL (5.7-8.2) 7.0 g/dL (5.7-8.2) Coagulation Test 07/09/24 19:41 Prothrombin Time 11.0 sec (9.3-11.8) Prothrombin Time INR 1.04 (0.9-1.15) Activated Partial Thromboplast Time 27.1 SEC (24.5-34.5) Cardiac Markers Test 07/09/24 19:41 B-Type Natriuretic Peptide 101.92 pg/mL (0-100) LFT Test 07/09/24 19:41 07/10/24 09:14 Alanine Aminotransferase (ALT) 18 U/L (7-40) 17 U/L (7-40) Alkaline Phosphatase 128 U/L (46-116) H 117 U/L (46-116) H Aspartate Amino Transferase (AST) 26 U/L (13-40) 25 U/L (13-40) Total Bilirubin 1.0 mg/dL (0.2-1.0) 1.2 mg/dL (0.2-1.0) H Urinalysis Test 07/09/24 20:06 Urine Color Light-yellow (Yellow) Urine Clarity Clear (Clear) Urine pH 5.5 (5.0-9.0) Urine Specific [place] 1.014 (1.001-1.035) Urine Protein Negative (Negative) Urine Ketones Negative (Negative) Urine Blood 2+ /uL (Negative) H Urine Nitrite Negative (Negative) Urine Bilirubin Negative (Negative) Urine Urobilinogen Normal mg/dL (Negative) Urine Leukocyte Esterase Negative /uL (Negative) Urine RBC 15 /hpf (0 - 3) Urine Microscopic WBC < 1 /HPF (0-3) Urine Squamous Epithelial Cells Few /hpf (<5) Urine Bacteria None seen /hpf (None Seen) Urine Glucose Normal mg/dL (Normal) Labs and/or images reviewed: Labs reviewed by me, Image(s) reviewed by me Assessment/Plan Assessment/Plan Sepsis secondary to community-acquired pneumonia Bilateral Community-acquired pneumonia: Rocephin azithromycin blood cultures Acute metabolic encephalopathy Rule out stroke: CT head negative MRI brain negative carotid ultrasound negative History of ischemic stroke seven years ago Dementia: Aricept Hypotension: AK I: Renal ultrasound negative History of cholelithiasis Hematuria Ordered Edith test rapid flu test D-dimer Time spent 65 minutes Condition guarded Patient is full code [id number] and POA [phone] at bedside Advanced care planning time 20 minutes Plan discussed with: Patient My Orders Orders - ALFRED MYERS MD Procedure Category Date Status Time * Neurology Consult CONS 07/10/24 Transmitted 12:01 Covid19 Antigen Sia LAB 07/10/24 Logged Rapid Influenza A&B LAB 07/10/24 Logged 12:03 D-Dimer LAB 07/10/24 Logged 12:03 Azithromycin 500mg/ PHA 07/11/24 Transmitted 250ml (Zithromax 50 10:00 Azithromycin 500mg/ PHA 07/10/24 Transmitted 250ml (Zithromax 50 12:15 Date of Service: Jul 10, 2024 Billing Provider: ALFRED MYERS MD Common Visit Codes: [id number] CARE 30-74 MIN ALFRED MYERS MD Jul 10, 2024 12:16
[2024-07-10] MEDS: AZITHROMYCIN 500MG/ 250ML 250 ML IV ONE (12:49)
[2024-07-10 15:11] LABS: COVID19 ANTIGEN SOFIA FIA NEGATIVE (NEGATIVE)
[2024-07-10 15:13] LABS: Rapid Influenza A Negative (Negative); Rapid Influenza B Negative (Negative)
--- NOTE | 2024-07-10 23:35 | DVHINCON2 ---
Date of service: Jul 10, [address] Briggs Reason for Consultation Disorientation with history of stroke History of Present Illness Mr. Ge Sainz is an ambidextrous male with a history of hypertension, kidney failure, stroke in 2019, dementia, previous alcoholism. He was brought to the [facility] on 07/09/2024 with a chief complaint of tremors, altered mental status. At this time, he was awake, oriented to person, with reasonable social skills, I did not see off tremors this evening He was progressive short-term memory difficulty since 2022, he was have agitation/behavior difficulty. He was on Aricept 10 mg daily, Remeron 30 mg HS at home In 2018, the patient was developed confusion, poor coordination, and he was found to have stroke in the local hospital. He was on Lipitor 20 mg daily at home, he was not on aspirin concerning kidney disorder Urinalysis, 07/09/2024: WBC: 1, urine leukocyte esterase: Negative WBC/HB/PLT/MCV, 07/10/2024: 5.8/11.8/190/94.2 BUN/CR, 07/09/2024: 22/1.38 Liver function tests, 07/09/2024: Unremarkable CT head, 07/10/2024: No hemodynamically significant stenosis noted in the right carotid system. No hemodynamically significant stenosis noted in the left carotid system. MRI head, 07/10/2024: No evidence of acute infarction, intracranial hemorrhage, mass effect or hydrocephalus. There is nonspecific periventricular and subcortical T2/FLAIR hyperintense white matter changes. Differential includes: Demyelinating disease, chronic microangiopathic change, residua of migraine headaches or other postinflammatory residua Past Medical History Stroke, kidney failure, dementia, BPH, vitamin B12 deficiency Past Surgical History Cataract surgery Family History: Patient reports no known family medical history. Family History Hypertension, dyslipidemia, stroke, anxiety Social History He has a history of heavy alcohol, but no history of smoking or drug abuse Allergies: Coded Allergies: NO KNOWN ALLERGIES (Unverified , 12/29/21) Home Meds Reported Medications Atorvastatin Calcium (ATORVASTATIN CALCIUM) 20 Mg Tab, 1 TAB PO DAILY 12/29/21 Current Medications Current Medications Medications (Trade) Dose Ordered Sig/Renee Route PRN Reason Start Time Stop Time Status Last Admin Atorvastatin Calcium (Lipitor) 80 mg DAILY PO 07/10/24 00:45 07/10/24 01:29 Enoxaparin Sodium (Lovenox) 40 mg DAILY SC 07/10/24 10:00 07/10/24 10:18 Ceftriaxone Sodium 50 ml @ 100 mls/hr DAILY@09 IV 07/10/24 09:00 07/10/24 10:17 Azithromycin 250 ml @ 125 mls/hr DAILY IV 07/11/24 10:00 Future Hold Review of Systems As above, the other systems are negative Vital Signs Vital Signs Date Time Temp Pulse Resp B/P (MAP) Pulse Ox O2 Delivery O2 Flow Rate FiO2 07/10/24 21:00 98.1 63 17 167/65 (99) 98 98.1 07/10/24 20:00 Room Air* 0 21 Physical Exam GENERAL EXAM: General: the patient is well developed and nourished. No acute distress. HEENT: Normocephalic, neck is supple, no carotid bruits. No mass. RESPIRATORY: Normal respiratory effort with symmetrical lung expansion. Lungs clear to auscultation. CARDIOVASCULAR: Regular rate and rhythm with no murmurs. S1, S2. ABDOMEN: Soft, nontender, normal bowel sound NEUROLOGICAL: MENTAL STATUS: Awake and alert. Oriented to person SPEECH, LANGUAGE, HIGHER CORTICAL FUNCTION: no aphasia or dysathria. CRANIAL NERVES: #2: Intact visual ramirez to confrontation. The optic discs were sharp #3,4,6: Pupils are equal, round and reactive. EOMs full and conjugate #5: Facial sensation intact in all three divisions bilaterally. Mandibular strength intact. #7: Facial muscles symmetrical and strength intact. #8: Hearing grossly normal to voice. #9,10: Uvula and soft palate rise in the midline. Swallow and voice are normal. #11: Trapezius and sternomastoid strength intact bilaterally. #12: Tongue midline. No fasciculations or atrophy. SENSATION: Sensation to touch and pinprick is normal. MOTOR: Normal tone in the upper and lower extremity. Normal muscle bulk. No fasciculations. No abnormal movements or posturing. Muscle strength of the major groups in the upper extremities is 5/5. Muscle strength of the major groups in the lower extremities is 5/5. REFLEXES: Deep tendon reflexes normal and symmetrical. No pathological reflexes. CEREBELLAR/COORDINATION: Finger to nose is normal bilaterally. GAIT/STATION: deferred. Labs/Diagnostic Data Labs Test 07/10/24 13:10 07/10/24 12:57 07/10/24 09:14 07/09/24 21:10 Range/Units D-Dimer, Quantitative 1.12 H 0.0-0.49 mg/L FEU Influenza Type A Antigen Negative Negative Influenza Type B Antigen Negative Negative SARS-CoV-2 Antigen (Rapid) Negative NEGATIVE White Blood Count 5.8 4.4-10.8 10^3/uL Red Blood Count 3.73 L 4.5-5.90 10^6/uL Hemoglobin 11.8 L 13.5-17.5 g/dL Hematocrit 35.1 L 41.0-53.0 % Mean Corpuscular Volume 94.2 80.0-100.0 fL Mean Corpuscular Hemoglobin 31.6 28.0-32.0 pg Mean Corpuscular Hemoglobin Concent 33.5 32.0-36.0 g/dL Red Cell Distribution Width 15.2 H 11.8-14.3 % Platelet Count 190 140-450 10^3/uL Mean Platelet Volume 7.5 6.9-10.8 fL Neutrophils (%) (Auto) 52.2 37.0-80.0 % Lymphocytes (%) (Auto) 30.5 10.0-50.0 % Monocytes (%) (Auto) 10.4 0.0-12.0 % Eosinophils (%) (Auto) 6.5 0.0-7.0 % Basophils (%) (Auto) 0.4 0.0-2.0 % Neutrophils # (Auto) 3.0 1.6-8.6 10 ^3/uL Lymphocytes # (Auto) 1.8 0.4-5.4 10 ^3/uL Monocytes # (Auto) 0.6 0-1.3 10 ^3/uL Eosinophils # (Auto) 0.4 0-0.8 10 ^3/uL Basophils # (Auto) 0 0-0.2 10 ^3/uL Nucleated Red Blood Cells 0.2 % Sodium Level 140 136-145 mmol/L Potassium Level 4.1 3.5-5.1 mmol/L Chloride Level 106 98-107 mmol/L Carbon Dioxide Level 23 20-31 mmol/L Anion Gap 11 5-15 Blood Urea Nitrogen 19 9-23 mg/dL Creatinine 1.31 H 0.700-1.30 mg/dL Glomerular Filtration Rate Calc 53 >90 mL/min BUN/Creatinine Ratio 14.5 10.0-20.0 Serum Glucose 98 74-106 mg/dL Calcium Level 9.6 8.7-10.4 mg/dL Total Bilirubin 1.2 H 0.2-1.0 mg/dL Aspartate Amino Transferase (AST) 25 13-40 U/L Alanine Aminotransferase (ALT) 17 7-40 U/L Alkaline Phosphatase 117 H 46-116 U/L Total Protein 7.0 5.7-8.2 g/dL Albumin 4.2 3.2-4.8 g/dL Troponin I High Sensitivity 6 </=54 ng/L Test 07/09/24 20:06 07/09/24 19:41 Range/Units Urine Color Light-yellow Yellow Urine Clarity Clear Clear Urine pH 5.5 5.0-9.0 Urine Specific [place] 1.014 1.001-1.035 Urine Protein Negative Negative Urine Ketones Negative Negative Urine Blood 2+ H Negative /uL Urine Nitrite Negative Negative Urine Bilirubin Negative Negative Urine Urobilinogen Normal Negative mg/dL Urine Leukocyte Esterase Negative Negative /uL Urine RBC 15 0 - 3 /hpf Urine Microscopic WBC < 1 0-3 /HPF Urine Squamous Epithelial Cells Few <5 /hpf Urine Bacteria None seen None Seen /hpf Urine Glucose Normal Normal mg/dL Prothrombin Time 11.0 9.3-11.8 sec Prothrombin Time INR 1.04 0.9-1.15 Activated Partial Thromboplast Time 27.1 24.5-34.5 SEC Lactic Acid Level 1.1 0.4-2.0 mmol/L Magnesium Level 2.4 1.6-2.6 mg/dL B-Type Natriuretic Peptide 101.92 0-100 pg/mL Assessment Dementia Alzheimer disease Vascular dementia Stroke (2019) History of alcoholism Agitation Chronic alcoholism Vitamin B12 deficiency Plan/Recommendation Monitoring Supportive treatment Vitamin B12 EEG Telemetry Aricept 10 mg daily Remeron 30 mg daily Lipitor 20 mg daily Vitamin B12, 500 mcg daily Up to chair Physical therapy Plan discussed with: Other BASIL GIMENEZ MD Jul 10, 2024 23:35
[2024-07-11 01:00] VITALS: BP_SYST 140; BP_SYST 141; BP_DIAS 54; BP_DIAS 72; PULSE 69; PULSE 70; RESP 18; TEMP 97.6; TEMP 97.7; O2SAT 94; O2SAT 97
[2024-07-11 05:00] VITALS: BP 155/78; PULSE 69; RESP 18; TEMP 97.7; O2SAT 97
[2024-07-11] MEDS: ATORVASTATIN 20 MG TAB PO SCH ×2 (06:27→21:53)
[2024-07-11 09:00] VITALS: BP 164/63; PULSE 66; RESP 16; TEMP 98.4; O2SAT 96
[2024-07-11] MEDS: CYANOCOBALAMIN 500 MCG TAB PO SCH (09:05)
--- NOTE | 2024-07-11 10:55 | DVHPN2 ---
Reviewed: Care Plan, H&P, Labs, Medications, Previous Orders, Radiology Changes from previous H/P or p: No Changes Eyes: No Pain, No Vision change, No Conjunctivae inflammation, No Eyelid inflammation, No Other, No Redness ENT: No Ear pain, No Ear discharge, No Nose pain, No Nose discharge, No Nose congestion, No Mouth pain, No Mouth swelling, No Throat pain, No Throat swelling, No Other Cardiovascular: No Chest Pain, No Palpitations, No Orthopnea, No Paroxysmal Noc. Dyspnea, No Edema, No Lt Headedness, No Other Respiratory: No Cough, No Dry, No Shortness of breath, No SOB with excertion, No Wheezing, No Hemoptysis, No Pleuritic Pain, No Sputum, No Other Gastrointestinal: No Nausea, No Vomiting, No Abdominal Pain, No Diarrhea, No Constipation, No Melena, No Hematochezia, No Other Genitourinary: No Dysuria, No Frequency, No Incontinence, No Hematuria, No Retention, No Other Musculoskeletal: No other, No neck pain, No shoulder pain, No arm pain, No back pain, No hand pain, No leg pain, No foot pain Skin: No Rash, No Lesions, No Jaundice, No Bruising, No Other Objective Vitals Vital Signs Date Time Temp Pulse Resp B/P (MAP) Pulse Ox O2 Delivery O2 Flow Rate FiO2 07/11/24 09:00 98.4 66 16 164/63 (96) 96 98.4 07/11/24 08:00 Room Air* 0 21 Intake/Output Intake and Output 07/11/24 07:00 Intake Total 500 ml Balance 500 ml Intake Oral 200 ml IV Total 300 ml # Voids 5 # Bowel Movements 1 Medications Current Medications Medications Dose Ordered Sig/Renee Route Start Time Stop Time Status Last Admin Dose Admin Enoxaparin Sodium 40 mg DAILY SC 07/10/24 10:00 07/11/24 09:05 40 MG Ceftriaxone Sodium 50 ml @ 100 mls/hr DAILY@09 IV 07/10/24 09:00 07/11/24 09:05 100 MLS/HR Azithromycin 250 ml @ 125 mls/hr DAILY IV 07/11/24 10:00 Donepezil HCl 10 mg HS PO 07/11/24 22:00 Mirtazapine 30 mg HS PO 07/11/24 22:00 Cyanocobalamin 500 mcg DAILY PO 07/11/24 10:00 07/11/24 09:05 500 MCG Atorvastatin Calcium 20 mg DAILY PO 07/11/24 22:00 Laboratory Results Laboratory Tests 07/10/24 09:14 Coagulation Test 07/10/24 13:10 D-Dimer, Quantitative 1.12 mg/L FEU (0.0-0.49) H Urinalysis Test 07/09/24 20:06 Urine Color Light-yellow (Yellow) Urine Clarity Clear (Clear) Urine pH 5.5 (5.0-9.0) Urine Specific [place] 1.014 (1.001-1.035) Urine Protein Negative (Negative) Urine Ketones Negative (Negative) Urine Blood 2+ /uL (Negative) H Urine Nitrite Negative (Negative) Urine Bilirubin Negative (Negative) Urine Urobilinogen Normal mg/dL (Negative) Urine Leukocyte Esterase Negative /uL (Negative) Urine RBC 15 /hpf (0 - 3) Urine Microscopic WBC < 1 /HPF (0-3) Urine Squamous Epithelial Cells Few /hpf (<5) Urine Bacteria None seen /hpf (None Seen) Urine Glucose Normal mg/dL (Normal) Labs and/or images reviewed: Labs reviewed by me, Image(s) reviewed by me Assessment/Plan Assessment/Plan Sepsis secondary to community-acquired pneumonia Bilateral Community-acquired pneumonia: Rocephin azithromycin blood cultures Acute metabolic encephalopathy Rule out stroke: CT head negative MRI brain negative carotid ultrasound negative, consult for Dr. Velasco appreciated History of ischemic stroke seven years ago Dementia: Aricept Hypotension: DAMIEN : Renal ultrasound negative History of cholelithiasis Hematuria Hypercholesterolemia: Lipitor Edith test negative Rapid flu test negative D-dimer elevated 1.[address] chest angio with contrast pending Time spent 65 minutes Condition guarded Patient is full code [id number] New and POA [phone] at bedside Advanced care planning time 20 minutes Plan discussed with: Patient My Orders Orders - ALFRED MYERS MD Procedure Category Date Status Time * Neurology Consult CONS 07/10/24 Transmitted 12:01 Azithromycin 500mg/ PHA 07/11/24 In Process 250ml (Zithromax 50 10:00 Blood Culture MELIA 07/10/24 In Process 12:04 Code Status CODE 07/10/24 Transmitted 12:[address] 07/10/24 Logged 16:15 Regular Diet DIET 07/10/24 Transmitted Dinner Date of Service: Jul 11, 2024 Billing Provider: ALFRED MYERS MD Common Visit Codes: [id number] INP/OBS CARE(HIGH) ALFRED MYERS MD Jul 11, 2024 10:55
[2024-07-11] MEDS: METOPROLOL TARTRATE 50 MG TAB PO ONE (11:38)
--- NOTE | 2024-07-11 11:49 | DVH ---
EXAM: US Duplex Bilateral Lower Extremities Veins CLINICAL INDICATION: Elevated D-dimer rule out DVT TECHNIQUE: Real-time duplex ultrasound scan of the bilateral lower extremity veins integrating B-mod e two-dimensional vascular structure, Doppler spectral analysis, color flow Doppler imaging and compr ession. COMPARISON: None FINDINGS: RIGHT DEEP VEINS: Unremarkable. No DVT in the right common femoral, femoral, proximal deep femoral or popliteal veins. The veins demonstrate normal color flow, are normally compressible, with normal phasic flow and/or augmentation response. RIGHT SUPERFICIAL VEINS: Unremarkable. No thrombus in the visualized right great saphenous vein. LEFT DEEP VEINS: Unremarkable. No DVT in the left common femoral, femoral, proximal deep femoral o r popliteal veins. The veins demonstrate normal color flow, are normally compressible, with normal p hasic flow and/or augmentation response. LEFT SUPERFICIAL VEINS: Unremarkable. No thrombus in the visualized left great saphenous vein. SOFT TISSUES: No acute findings. No popliteal cyst. OTHER FINDINGS: . None. IMPRESSION: No DVT.
[2024-07-11] MEDS ORDERED: IOHEXOL 350 MG/ML 100ML IJ ONE (12:17)
[2024-07-11] MEDS ORDERED: DONE1TAB88 PO (12:49)
[2024-07-11] MEDS ORDERED: ATOR20TA PO (12:49)
[2024-07-11] MEDS ORDERED: MIRT-93 PO (12:49)
[2024-07-11 13:00] VITALS: BP 144/59; PULSE 56; RESP 16; TEMP 98.2; O2SAT 96
--- NOTE | 2024-07-11 13:13 | DVH ---
EXAM: CT Angiography Chest With Intravenous Contrast CLINICAL INDICATION: Elevated D-dimer rule out PE TECHNIQUE: Axial computed tomographic angiography images of the chest with intravenous contrast. Th is CT exam was performed using one or more of the following dose reduction techniques: automated exp osure control, adjustment of the mA and/or kV according to patient size, and/or use of iterative regis nstruction technique. MIP reconstructed images were created and reviewed. CONTRAST: RADIATION DOSE: CTDIvol = 20.99 mGy, DLP = 804.49 mGy-cm COMPARISON: None FINDINGS: LIMITATIONS: Suboptimal opacification of the pulmonary arteries. PULMONARY ARTERIES: No pulmonary embolism is identified. Some of the distal pulmonary arteries can not be evaluated due to suboptimal opacification. AORTA: No acute findings. No thoracic aortic aneurysm. The ascending thoracic aorta measures 3.6 cm in maximum diameter. LUNGS AND PLEURAL SPACES: Lung emphysema. No mass. No consolidation. No significant effusion. N o pneumothorax. HEART: Unremarkable. No cardiomegaly. No significant pericardial effusion. No evidence of RV dys function. MEDIASTINUM: Small esophageal hiatal hernia. BONES/JOINTS: No acute fracture. No dislocation. SOFT TISSUES: Unremarkable. LYMPH NODES: Unremarkable. No enlarged lymph nodes. OTHER FINDINGS: . . IMPRESSION: 1. No pulmonary embolism is identified. Some of the distal pulmonary arteries cannot be evaluated d ue to suboptimal opacification. 2. Small esophageal hiatal hernia.
[2024-07-11 17:00] VITALS: BP 144/56; PULSE 54; RESP 16; TEMP 99.1; O2SAT 98
[2024-07-11 21:00] VITALS: BP 134/51; PULSE 62; RESP 20; TEMP 98.2; O2SAT 97
[2024-07-11] MEDS: DONEPEZIL HYDROCHLORIDE 5 MG TAB PO SCH (21:53)
[2024-07-11] MEDS: MIRTAZAPINE 30 MG TAB PO SCH (21:53)
[2024-07-11] MEDS: METOPROLOL TARTRATE 50 MG TAB PO SCH (21:54)
[2024-07-12 01:00] VITALS: BP 141/50; PULSE 56; RESP 18; TEMP 98.4; O2SAT 96
[2024-07-12 08:37] VITALS: BP 163/95; PULSE 60; RESP 16; TEMP 98.4; O2SAT 94
[2024-07-12] MEDS: AZITHROMYCIN 500MG/ 250ML 250 ML IV SCH (09:17)
[2024-07-12] MEDS ORDERED: CIPR-173 PO (11:15)
[2024-07-12] MEDS ORDERED: AZIT500T66 PO (11:17)
--- NOTE | 2024-07-12 11:17 | DVHPN2 ---
Reviewed: Care Plan, H&P, Labs, Medications, Previous Orders, Radiology Changes from previous H/P or p: No Changes Eyes: No Pain, No Vision change, No Conjunctivae inflammation, No Eyelid inflammation, No Other, No Redness ENT: No Ear pain, No Ear discharge, No Nose pain, No Nose discharge, No Nose congestion, No Mouth pain, No Mouth swelling, No Throat pain, No Throat swelling, No Other Cardiovascular: No Chest Pain, No Palpitations, No Orthopnea, No Paroxysmal Noc. Dyspnea, No Edema, No Lt Headedness, No Other Respiratory: No Cough, No Dry, No Shortness of breath, No SOB with excertion, No Wheezing, No Hemoptysis, No Pleuritic Pain, No Sputum, No Other Gastrointestinal: No Nausea, No Vomiting, No Abdominal Pain, No Diarrhea, No Constipation, No Melena, No Hematochezia, No Other Genitourinary: No Dysuria, No Frequency, No Incontinence, No Hematuria, No Retention, No Other Musculoskeletal: No other, No neck pain, No shoulder pain, No arm pain, No back pain, No hand pain, No leg pain, No foot pain Skin: No Rash, No Lesions, No Jaundice, No Bruising, No Other Objective Vitals Vital Signs Date Time Temp Pulse Resp B/P (MAP) Pulse Ox O2 Delivery O2 Flow Rate FiO2 07/12/24 10:16 54 113/47 07/12/24 08:37 98.4 16 94 98.4 07/12/24 08:01 Room Air* 0 21 Intake/Output Intake and Output 07/12/24 07:00 Intake Total 1013 ml Balance 1013 ml Intake Oral 963 ml IV Total 50 ml # Voids 2 Medications Current Medications Medications Dose Ordered Sig/Renee Route Start Time Stop Time Status Last Admin Dose Admin Enoxaparin Sodium 40 mg DAILY SC 07/10/24 10:00 07/11/24 09:05 40 MG Ceftriaxone Sodium 50 ml @ 100 mls/hr DAILY@09 IV 07/10/24 09:00 07/12/24 09:16 100 MLS/HR Azithromycin 250 ml @ 125 mls/hr DAILY IV 07/11/24 10:00 07/12/24 09:17 125 MLS/HR Donepezil HCl 10 mg HS PO 07/11/24 22:00 07/11/24 21:53 10 MG Mirtazapine 30 mg HS PO 07/11/24 22:00 07/11/24 21:53 30 MG Cyanocobalamin 500 mcg DAILY PO 07/11/24 10:00 07/12/24 09:16 500 MCG Atorvastatin Calcium 20 mg DAILY PO 07/11/24 22:00 07/12/24 09:16 20 MG Metoprolol Tartrate 50 mg BID PO 07/11/24 22:00 07/12/24 09:16 50 MG Laboratory Results Laboratory Tests 07/10/24 09:14 Urinalysis Test 07/09/24 20:06 Urine Color Light-yellow (Yellow) Urine Clarity Clear (Clear) Urine pH 5.5 (5.0-9.0) Urine Specific [place] 1.014 (1.001-1.035) Urine Protein Negative (Negative) Urine Ketones Negative (Negative) Urine Blood 2+ /uL (Negative) H Urine Nitrite Negative (Negative) Urine Bilirubin Negative (Negative) Urine Urobilinogen Normal mg/dL (Negative) Urine Leukocyte Esterase Negative /uL (Negative) Urine RBC 15 /hpf (0 - 3) Urine Microscopic WBC < 1 /HPF (0-3) Urine Squamous Epithelial Cells Few /hpf (<5) Urine Bacteria None seen /hpf (None Seen) Urine Glucose Normal mg/dL (Normal) Microbiology Microbiology Date/Time Source Procedure Growth Status 07/10/24 13:10 Blood Blood Culture - Preliminary NO GROWTH AFTER 24 HOURS OF INCUBATION. Resulted 07/09/24 20:06 Voided Urine Urine Culture - Preliminary Resulted Labs and/or images reviewed: Labs reviewed by me, Image(s) reviewed by me Assessment/Plan Assessment/Plan Sepsis secondary to community-acquired pneumonia Bilateral Community-acquired pneumonia: Rocephin azithromycin blood cultures, negative Acute metabolic encephalopathy Rule out stroke: CT head negative MRI brain negative carotid ultrasound negative, consult for Dr. Velasco appreciated History of ischemic stroke seven years ago Dementia: Aricept Hypotension: DAMIEN : Renal ultrasound negative History of cholelithiasis Acute UTI urinary tract infection: urine cultures mixed, continue Rocephin, repeat urine cultures ordered Hematuria Hypercholesterolemia: Lipitor Edith test negative Rapid flu test negative D-dimer elevated 1.12 DVT ruled out PE ruled out Time spent 65 minutes Condition guarded Patient is full code [id number] New valenzuela POA [phone] at bedside she is requesting patient to be discharged home today on p.o. antibiotics for UTI Advanced care planning time 20 minutes Plan discussed with: Patient My Orders Orders - ALFRED MYERS MD Procedure Category Date Status Time Pt Request For Service PT 07/11/24 Logged 11:27 Date of Service: Jul 12, 2024 Billing Provider: ALFRED MYERS MD Common Visit Codes: [id number] INP/OBS CARE(HIGH) ALFRED MYERS MD Jul 12, 2024 11:17
--- NOTE | 2024-07-12 11:23 | DVHDS2 ---
Discharge Summary Date of Admission Jul 10, 2024 at 00:37 Date of Discharge: Jul 12, 2024 Admitting Diagnosis Altered mental status and presyncope Wounds: None Labs/Diagnostic Data: Laboratory Results Test 07/10/24 13:10 07/10/24 12:57 07/10/24 09:14 07/09/24 21:10 D-Dimer, Quantitative 1.12 mg/L FEU (0.0-0.49) Influenza Type A Antigen Negative (Negative) Influenza Type B Antigen Negative (Negative) SARS-CoV-2 Antigen (Rapid) Negative (NEGATIVE) White Blood Count 5.8 10^3/uL (4.4-10.8) Red Blood Count 3.73 10^6/uL (4.5-5.90) Hemoglobin 11.8 g/dL (13.5-17.5) Hematocrit 35.1 % (41.0-53.0) Mean Corpuscular Volume 94.2 fL (80.0-100.0) Mean Corpuscular Hemoglobin 31.6 pg (28.0-32.0) Mean Corpuscular Hemoglobin Concent 33.5 g/dL (32.0-36.0) Red Cell Distribution Width 15.2 % (11.8-14.3) Platelet Count 190 10^3/uL (140-450) Mean Platelet Volume 7.5 fL (6.9-10.8) Neutrophils (%) (Auto) 52.2 % (37.0-80.0) Lymphocytes (%) (Auto) 30.5 % (10.0-50.0) Monocytes (%) (Auto) 10.4 % (0.0-12.0) Eosinophils (%) (Auto) 6.5 % (0.0-7.0) Basophils (%) (Auto) 0.4 % (0.0-2.0) Neutrophils # (Auto) 3.0 10 ^3/uL (1.6-8.6) Lymphocytes # (Auto) 1.8 10 ^3/uL (0.4-5.4) Monocytes # (Auto) 0.6 10 ^3/uL (0-1.3) Eosinophils # (Auto) 0.4 10 ^3/uL (0-0.8) Basophils # (Auto) 0 10 ^3/uL (0-0.2) Nucleated Red Blood Cells 0.2 % Sodium Level 140 mmol/L (136-145) Potassium Level 4.1 mmol/L (3.5-5.1) Chloride Level 106 mmol/L (98-107) Carbon Dioxide Level 23 mmol/L (20-31) Anion Gap 11 (5-15) Blood Urea Nitrogen 19 mg/dL (9-23) Creatinine 1.31 mg/dL (0.700-1.30) Glomerular Filtration Rate Calc 53 mL/min (>90) BUN/Creatinine Ratio 14.5 (10.0-20.0) Serum Glucose 98 mg/dL (74-106) Calcium Level 9.6 mg/dL (8.7-10.4) Total Bilirubin 1.2 mg/dL (0.2-1.0) Aspartate Amino Transferase (AST) 25 U/L (13-40) Alanine Aminotransferase (ALT) 17 U/L (7-40) Alkaline Phosphatase 117 U/L (46-116) Total Protein 7.0 g/dL (5.7-8.2) Albumin 4.2 g/dL (3.2-4.8) Troponin I High Sensitivity 6 ng/L (</=54) Test 07/09/24 20:06 07/09/24 19:41 Urine Color Light-yellow (Yellow) Urine Clarity Clear (Clear) Urine pH 5.5 (5.0-9.0) Urine Specific [place] 1.014 (1.001-1.035) Urine Protein Negative (Negative) Urine Ketones Negative (Negative) Urine Blood 2+ /uL (Negative) Urine Nitrite Negative (Negative) Urine Bilirubin Negative (Negative) Urine Urobilinogen Normal mg/dL (Negative) Urine Leukocyte Esterase Negative /uL (Negative) Urine RBC 15 /hpf (0 - 3) Urine Microscopic WBC < 1 /HPF (0-3) Urine Squamous Epithelial Cells Few /hpf (<5) Urine Bacteria None seen /hpf (None Seen) Urine Glucose Normal mg/dL (Normal) Prothrombin Time 11.0 sec (9.3-11.8) Prothrombin Time INR 1.04 (0.9-1.15) Activated Partial Thromboplast Time 27.1 SEC (24.5-34.5) Lactic Acid Level 1.1 mmol/L (0.4-2.0) Magnesium Level 2.4 mg/dL (1.6-2.6) B-Type Natriuretic Peptide 101.92 pg/mL (0-100) Other Laboratory Tests 07/10/24 09:14 Brief Hx & Hospital Course: 84-year-old male with a history of stroke dementia hypotension recurrent urinary tract infections hypercholesterolemia came in for altered mental status and presyncopal episode. Found to be in sepsis secondary to community-acquired pneumonia and urinary tract infection treated with Rocephin and azithromycin for pneumonia and Rocephin for UTI blood cultures negative urine cultures came mixed. CT head was negative MRI brain were negative carotid ultrasound negative echocardiogram normal D-dimer was slightly elevated 1.12 PE ruled out DVT ruled out seen by Neurology Dr. Velasco we will order the EEG. Patient's [id number] at the bedside and requesting patient to be discharged home today. Discharged home on Cipro for UTI and azithromycin for pneumonia. Repeat urine cultures were ordered and the patient was advised that the PCP should call in three days for the culture result to see if he needs IV antibiotics. Patient is alert stable vital signs and ambulatory at the time of discharge Consults/Reason for consult Neurology Dr. Velasco Operations or Procedures CT head Carotid ultrasound Echocardiogram MRI brain Venous ultrasound CT chest angiogram Condition at Discharge: Fair Final Diagnosis/Problems List Sepsis secondary to community-acquired pneumonia Bilateral Community-acquired pneumonia: Rocephin azithromycin blood cultures, negative Acute metabolic encephalopathy Rule out stroke: CT head negative MRI brain negative carotid ultrasound negative, consult for Dr. Velasco appreciated History of ischemic stroke seven years ago Dementia: Aricept Hypotension: DAMIEN : Renal ultrasound negative History of cholelithiasis Acute UTI urinary tract infection: urine cultures mixed, continue Rocephin, repeat urine cultures ordered Hematuria Hypercholesterolemia: Lipitor Edith test negative Rapid flu test negative D-dimer elevated 1.12 DVT ruled out PE ruled out Discharge Disposition: Home Discharge Instruct/Medications Diet: Cardiac 2g Na,low cholest Activity: Light activity Follow Up/Referral: Primary Dr. Dr Mascorro to to call in three days for repeat urinary culture result to see if the patient needs IV antibiotics, daughter in law Kaya advised accordingly Continue all other previous home medications Medications: Azithromycin Cipro Transmitted to pharmacy 39 (Time taken for discharge summary 39 minutes) Discharge Statement: "Patient was advised to return to the ER or call 911 if any headaches, dizziness, shortness of breath, chest pain, abdominal pain, bleeding, fevers, or worsening of medical condition. Patient was counseled about treatment plan, medications, possible side effects, patientverbalized understanding. All questions were answered to the best of my ability. This discharge took greater then 30 minutes in planning, reviewing documentation, counseling the patient, and discussing with other team members." ASSESSMENT ASSESSMENT Hospital Course Improved Assessment Sepsis secondary to community-acquired pneumonia Bilateral Community-acquired pneumonia: Rocephin azithromycin blood cultures, negative Acute metabolic encephalopathy Rule out stroke: CT head negative MRI brain negative carotid ultrasound negative, consult for Dr. Velasco appreciated History of ischemic stroke seven years ago Dementia: Aricept Hypotension: DAMIEN : Renal ultrasound negative History of cholelithiasis Acute UTI urinary tract infection: urine cultures mixed, continue Rocephin, repeat urine cultures ordered Hematuria Hypercholesterolemia: Lipitor Edith test negative Rapid flu test negative D-dimer elevated 1.12 DVT ruled out PE ruled out Date of Service: Jul 12, 2024 Billing Provider: ALFRED MYERS MD Common Visit Codes: 76143-DXE/OBS DISCH DAY >30min ALFRED MYERS MD Jul 12, 2024 11:23
[2024-07-12 11:48] VITALS: BP 116/48; PULSE 52; RESP 16; TEMP 97.9; O2SAT 95
--- NOTE | 2024-07-15 | DVHEEG2 ---
Neurology EEG Procedural Note Procedural Note EXAM DATE: 07/11/2024 REFERRING DOCTOR: Dr. Gimenez TECHNIQUE: Eighteen channels of EEG, 2 channels of EOG, and 1 channel of EKG were recorded using the [employer] 10/20 system. CLINICAL DATA medications: The patient was referred for an EEG evaluation for the evidence of seizure disorder. MEDICATIONS: See chart BACKGROUND ACTIVITY: While the patient was awake, the background activity consisted of well regulated 9-10 Hz rhythmic waveforms, symmetrically distributed over both posterior quadrants and was reactive to eye opening. ACTIVATION: Hyperventilation: Not done Photic Stimulation: Not done Sleep: Not seen IMPRESSION: This is a normal EEG. No focal, lateralized, or epileptiform features are noted. If clinically indicated to rule out a seizure disorder, recommend repeat EEG with sleep deprivation. The EKG channel showed a regular heart rate of 72/[place] [address] BASIL GIMENEZ MD Jul 15, 2024 00:00
== END 2024-07-12 13:30 | disposition home or self-care (01) | DRG 177 ==
LOC: ER 18:55 → OVERFLOW 07-10 00:37 → WEST WING 07-10 02:37
PROVIDERS: ADMIT Family Medicine; ATTEND Family Medicine
DX: J15.69 Pneumonia due to other Gram-negative bacteria (principal); G93.41 Metabolic encephalopathy; N39.0 Urinary tract infection, site not specified; F02.811 Dementia in other diseases classified elsewhere, unspecified severity, with agitation; N17.9 Acute kidney failure, unspecified; J15.9 Unspecified bacterial pneumonia; E78.00 Pure hypercholesterolemia, unspecified; Z20.822 Contact with and (suspected) exposure to COVID-19; E53.8 Deficiency of other specified B group vitamins; G30.9 Alzheimer's disease, unspecified; N40.0 Benign prostatic hyperplasia without lower urinary tract symptoms; I10 Essential (primary) hypertension; K80.20 Calculus of gallbladder without cholecystitis without obstruction; F01.50 Vascular dementia, unspecified severity, without behavioral disturbance, psychotic disturbance, mood disturbance, and anxiety; Z86.73 Personal history of transient ischemic attack (TIA), and cerebral infarction without residual deficits; Z79.899 Other long term (current) drug therapy; Z82.49 Family history of ischemic heart disease and other diseases of the circulatory system; Z82.3 Family history of stroke; Z81.8 Family history of other mental and behavioral disorders
CPT/HCPCS: 36415; 70450; 70551; 71045; 71275; 76775; 80053; 81001; 83605; 83735; 83880; 84484; 85025; 85379; 85610; 85730; 87040; 87086; 87426; 87804; 92610; 93886; 93970; 95819; 97163; G0378